=== PATIENT | female | born 1985 | race African-American/Black ===

== ENCOUNTER 2017-03-02 11:25 | Outpatient (CLI) | payer OTHER ==
[2017-03-02 12:18] LABS: #Basophils 0.1 thou/uL (0.0-0.2); #Eosinphils 0.1 thou/uL (0.0-0.7); #Lymphocytes 1.9 thou/uL (1.20-3.40); #Monocytes 0.4 thou/uL (0.11-0.59); #Neutrophils 1.8 thou/uL (1.40-6.50); %Basophils 2.1 % (0.0-1.0); %Eosinophils 2.2 % (0.0-10.0); %Lymphocytes 44.6 % (21.0-51.0); %Monocytes 8.7 % (0.0-10.0); %Neutrophils 42.5 % (42.0-75.0); ALT (SGPT) 22 U/L (0-55); AST (SGOT) 20 U/L (5-34); Albumin 3.8 g/dL (3.5-5.0); Alkaline Phosphatase 55 U/L (40-150); Anion Gap 13 mmol/L (10-20); BUN (Urea Nitrogen) 9 mg/dL (7.0-18.7); Bilirubin, Total 0.4 mg/dL (0.2-1.2); Calc. Creatinine Clearance 0 mL/min (70-130); Calcium 9.2 mg/dL (7.8-10.44); Carbon Dioxide 26 mmol/L (22-29); Chloride 103 mmol/L (98-107); Cholesterol 189 mg/dL (< 200 Desired); Estimated GFR-MDRD Greater than 90; Globulin 3.8 g/dL (2.4-3.5); Glucose 102 mg/dL (70-105); HDL Cholesterol 63 mg/dL (>60 Neg Risk); Hemoglobin 10.9 g/dL (12.0-16.0); LDL Cholesterol, Calculated 111 mg/dL; Mean Corpuscular HGB CONC 32.2 g/dL (32.0-36.0); Mean Platelet Volume 9.9 fL (7.4-10.4); Platelet Count 245 thou/uL (130-400); Potassium 4.1 mmol/L (3.5-5.1); Protein, Total 7.6 g/dL (6.0-8.3); RBC Distribution Width 12.2 % (11.5-14.5); Red Blood Cell (RBC) Count 3.89 mill/uL (4.20-5.40); Sodium 138 mmol/L (136-145); Triglycerides 73 mg/dL (Less than 150); White Blood Cell (WBC) Count 4.2 thou/uL (4.8-10.8)
[2017-03-02 12:34] LABS: Hemoglobin A1c 5.5 % (4.0-6.0)
[2017-03-02 15:12] LABS: Bilirubin Negative (Negative); Blood, Urine Small (Negative); Clarity Hazy (Clear); Glucose, Urine (Dipstick) Negative (Negative); Leukocyte Negative (Negative); Nitrite Negative (Negative); Protein, Urine (Dipstick) Negative (Neg-Trace); Urobilinogen 0.2 mg/dL (0.2-1.0); pH, Urine 5.5 (5.0-9.0)
[2017-03-02 15:18] LABS: Bacteria/HPF 1+ HPF (None Seen); WBC/HPF None Seen HPF (0-3)
[2017-03-02 18:59] LABS: HBCM Index 0.09 S/CO (0-0.79); HBSAg Index 0.22 S/CO (0-0.99); HIV (1/2) Antibody/Antigen Non-Reactive (NonReactive); HIV 1/2 INDEX 0.11 S/CO (<1.00); Hep A IgM AB Non-Reactive (NonReactive); Hep A IgM S/CO 0.17 S/CO (0-0.79); Hep B Surf Ag Non-Reactive S/CO (NonReactive); Hep C IgG Ab Non-Reactive (NonReactive); Hep C Index 0.28 S/CO (0-0.79); Hepatitis B Core IGM Abs Non-Reactive (NonReactive)
[2017-03-02 19:23] LABS: Specific Gravity, Urine 1.032 (1.002-1.036)
[2017-03-02 20:16] LABS: Chlamydia by PCR Not Detected (NotDetected); GC by PCR Not Detected (NotDetected)
== END 2017-03-02 11:26 | disposition home or self-care (01) ==
LOC: NAV LAB 11:25
PROVIDERS: ATTEND Family Medicine
DX: Z00.00 Encounter for general adult medical examination without abnormal findings (principal); Z20.2 Contact with and (suspected) exposure to infections with a predominantly sexual mode of transmission
CPT/HCPCS: 36415; 80053; 80061; 80074; 81001; 83036; 85025; 86592; 86694; 86695; 86696; 87389; 87491; 87591

== ENCOUNTER 2019-08-04 16:03 | Emergency (ER) | payer OTHER ==
[2019-08-04] MEDS ORDERED: Lidocaine 1% (PF) 30 ML VIAL ONE (16:33)
[2019-08-04] MEDS ORDERED: Lidocaine 1% w/Epinephrine 1:100K 30 ML VIAL ONE (16:33)
[2019-08-04] MEDS ORDERED: Aspirin Chewable 81 MG TAB ONE (16:33)
== END 2019-08-04 16:58 | disposition home or self-care (01) ==
LOC: NAV ERS 16:03
DX: S91.202A Unspecified open wound of left great toe with damage to nail, initial encounter (principal); I10 Essential (primary) hypertension; J45.909 Unspecified asthma, uncomplicated; W52.XXXA Crushed, pushed or stepped on by crowd or human stampede, initial encounter
CPT/HCPCS: 11750; J2001

== ENCOUNTER 2020-02-01 14:57 | Emergency (ER) | payer OTHER ==
[2020-02-01 15:25] LABS: Bilirubin Negative (Negative); Blood, Urine Small (Negative); Glucose, Urine (Dipstick) >=1000 mg/dL (Negative); Leukocyte Negative (Negative); Nitrite Negative (Negative); Protein, Urine (Dipstick) Negative (Neg-Trace); Urobilinogen 0.2 mg/dL (Less than 2)
[2020-02-01 15:33] LABS: Clarity SL HAZY (Clear)
[2020-02-01] MEDS ORDERED: Sodium Chloride 0.9% 1,000 ML ONE ×2 (15:48→16:35)
[2020-02-01 16:02] LABS: RBC/HPF 0-3 HPF (0-3); Squamous Epithelial 0-3 HPF (0-3); WBC/HPF 0-3 HPF (0-3)
[2020-02-01 16:20] LABS: ALT (SGPT) 20 U/L (8-55); AST (SGOT) 14 U/L (5-34); Albumin 4.1 g/dL (3.5-5.0); Alkaline Phosphatase 79 U/L (40-110); Anion Gap 17 mmol/L (10-20); BUN (Urea Nitrogen) 9 mg/dL (7.0-18.7); Bilirubin, Total 0.3 mg/dL (0.2-1.2); Calc. Creatinine Clearance 0 mL/min (70-130); Calcium 9.4 mg/dL (7.8-10.44); Carbon Dioxide 25 mmol/L (22-29); Chloride 95 mmol/L (98-107); Estimated GFR-MDRD 67; Globulin 4.2 g/dL (2.4-3.5); Glucose 448 mg/dL (70-105); Lipase 16 U/L (8-78); Potassium 4.1 mmol/L (3.5-5.1); Protein, Total 8.3 g/dL (6.0-8.3); Sodium 133 mmol/L (136-145)
[2020-02-01 16:22] LABS: #Basophils 0.1 thou/uL (0.0-0.2); #Eosinphils 0.1 thou/uL (0.0-0.7); #Lymphocytes 1.6 thou/uL (1.20-3.40); #Monocytes 0.4 thou/uL (0.11-0.59); #Neutrophils 2.8 thou/uL (1.40-6.50); %Basophils 1.2 % (0.0-1.0); %Eosinophils 1.7 % (0.0-10.0); %Lymphocytes 31.8 % (21.0-51.0); %Monocytes 8.4 % (0.0-10.0); %Neutrophils 56.8 % (42.0-75.0); Hemoglobin 12.3 g/dL (12.0-16.0); Mean Corpuscular HGB CONC 31.7 g/dL (32.0-36.0); Mean Corpuscular Volume 85.2 fL (78.0-98.0); Mean Platelet Volume 12.5 fL (7.4-10.4); Platelet Count 273 thou/uL (130-400); RBC Distribution Width 11.7 % (11.5-14.5); Red Blood Cell (RBC) Count 4.55 mill/uL (4.20-5.40)
[2020-02-01] MEDS ORDERED: Insulin Regular 300 UNITS/3 ML VIAL ONE (16:33)
== END 2020-02-01 17:53 | disposition home or self-care (01) ==
LOC: NAV ERS 14:57
DX: E11.9 Type 2 diabetes mellitus without complications (principal); E86.9 Volume depletion, unspecified
CPT/HCPCS: 36416; 80053; 81003; 81015; 82010; 83036; 83690; 84443; 85025; 96360; 96361; J1815; J7050

== ENCOUNTER 2020-04-02 16:01 | Emergency (ER) | payer OTHER ==
[2020-04-02] MEDS ORDERED: Ketorolac Tromethamine 60 MG/2 ML VIAL ONE (16:49)
[2020-04-02 16:53] LABS: Bilirubin Negative (Negative); Blood, Urine Trace (Negative); Glucose, Urine (Dipstick) 100 mg/dL (Negative); Leukocyte Negative (Negative); Nitrite Negative (Negative); Protein, Urine (Dipstick) 30 mg/dL (Neg-Trace); Urobilinogen 0.2 mg/dL (Less than 2)
[2020-04-02 16:54] LABS: Clarity SL HAZY (Clear)
[2020-04-02 17:08] LABS: Bacteria/HPF Rare-Few HPF (None Seen); RBC/HPF 0-3 HPF (0-3); Squamous Epithelial 0-3 HPF (0-3); WBC/HPF 0-3 HPF (0-3)
== END 2020-04-02 17:37 | disposition home or self-care (01) ==
LOC: NAV ERS 16:01
DX: R10.32 Left lower quadrant pain (principal); E11.9 Type 2 diabetes mellitus without complications
CPT/HCPCS: 81003; 81015; 87086; 96372; 99284; J1885

== ENCOUNTER 2020-07-12 15:48 | Emergency (ER) | payer OTHER ==
--- NOTE | 2020-07-12 16:23 | RAD ---
EXAM: FOUR VIEWS OF THE RIGHT KNEE: 07/12/20 HISTORY: Pain and injury. Fall. FINDINGS: Preserved joint spaces. No joint effusion. No fracture or malalignment. IMPRESSION: No fracture. POS: PPP
== END 2020-07-12 15:59 | disposition home or self-care (01) ==
LOC: NAV ERS 15:48
DX: S80.01XA Contusion of right knee, initial encounter (principal); E11.9 Type 2 diabetes mellitus without complications; I10 Essential (primary) hypertension; J45.909 Unspecified asthma, uncomplicated; Z79.84 Long term (current) use of oral hypoglycemic drugs; W01.0XXA Fall on same level from slipping, tripping and stumbling without subsequent striking against object, initial encounter
CPT/HCPCS: 99001

== ENCOUNTER 2020-11-19 18:35 | Emergency (ER) | payer OTHER ==
[2020-11-19] MEDS ORDERED: Sodium Chloride 0.9% 1,000 ML ONE (19:20)
[2020-11-19 19:39] LABS: #Basophils 0.1 thou/uL (0.0-0.2); #Eosinphils 0.1 thou/uL (0.0-0.7); #Lymphocytes 2.4 thou/uL (1.20-3.40); #Monocytes 0.6 thou/uL (0.11-0.59); %Basophils 1.6 % (0.0-1.0); %Eosinophils 1.5 % (0.0-10.0); %Monocytes 8.9 % (0.0-10.0); %Neutrophils 48.9 % (42.0-75.0); Hemoglobin 11.1 g/dL (12.0-16.0); Mean Corpuscular HGB CONC 31.6 g/dL (32.0-36.0); Mean Corpuscular Hemoglobin 27.2 pg (27.0-31.0); Mean Platelet Volume 12.6 fL (7.4-10.4); Platelet Count 203 thou/uL (130-400); White Blood Cell (WBC) Count 6.2 thou/uL (4.8-10.8)
[2020-11-19 19:41] LABS: ALT (SGPT) 16 U/L (8-55); AST (SGOT) 14 U/L (5-34); Albumin 3.8 g/dL (3.5-5.0); Alkaline Phosphatase 60 U/L (40-110); Anion Gap 15 mmol/L (10-20); BUN (Urea Nitrogen) 14 mg/dL (7.0-18.7); Bilirubin, Total 0.2 mg/dL (0.2-1.2); Calc. Creatinine Clearance 0 mL/min (70-130); Calcium 9.1 mg/dL (7.8-10.44); Carbon Dioxide 23 mmol/L (22-29); Chloride 100 mmol/L (98-107); Globulin 3.4 g/dL (2.4-3.5); Glucose 454 mg/dL (70-105); Lipase 35 U/L (8-78); Magnesium 1.5 mg/dL (1.6-2.6); Potassium 4.2 mmol/L (3.5-5.1); Protein, Total 7.2 g/dL (6.0-8.3); Sodium 134 mmol/L (136-145)
[2020-11-19 19:58] LABS: Platelet Morphology Comment Appears Adequate; RBC Morphology Normal
[2020-11-19 20:16] LABS: Pregnancy Test - Urine (BHCG) Negative (Negative); Pregu Control Background? CLEAR/WHITE (CLR/WHITE); Pregu Control Bar Appear? YES (CONTROL BAR); Specific Gravity 1.015 (1.002-1.036)
[2020-11-19 20:16] LABS: Bilirubin Negative (Negative); Blood, Urine Trace (Negative); Clarity Clear (Clear); Glucose, Urine (Dipstick) >=1000 mg/dL (Negative); Ketone, Urine 15 mg/dL (Negative); Leukocyte Negative (Negative); Nitrite Negative (Negative); Protein, Urine (Dipstick) Negative (Neg-Trace); Specific Gravity, Urine 1.015 (1.005-1.030); Urobilinogen 0.2 mg/dL (Less than 2)
[2020-11-19 20:22] LABS: Bacteria/HPF None Seen HPF (None Seen); RBC/HPF 0-3 HPF (0-3); Squamous Epithelial 0-3 HPF (0-3); WBC/HPF 0-3 HPF (0-3)
[2020-11-19] MEDS ORDERED: glyBURIDE 5 MG TAB PO SCH (21:30)
== END 2020-11-19 21:37 | disposition home or self-care (01) ==
LOC: NAV ERS 18:35
DX: E11.65 Type 2 diabetes mellitus with hyperglycemia (principal); D64.9 Anemia, unspecified; I10 Essential (primary) hypertension; J45.909 Unspecified asthma, uncomplicated; Z79.84 Long term (current) use of oral hypoglycemic drugs
CPT/HCPCS: 36416; 80053; 81003; 81015; 81025; 82010; 83605; 83690; 83735; 84484; 85025; 93005; 94760; J7050

== ENCOUNTER 2021-01-02 18:06 | Emergency (ER) | payer OTHER ==
[2021-01-02] MEDS ORDERED: Sodium Chloride 0.9% 1,000 ML ONE (18:45)
[2021-01-02 18:57] LABS: Bilirubin Negative (Negative); Blood, Urine Trace (Negative); Clarity Clear (Clear); Glucose, Urine (Dipstick) >=1000 mg/dL (Negative); Ketone, Urine Trace mg/dL (Negative); Leukocyte Negative (Negative); Nitrite Negative (Negative); Protein, Urine (Dipstick) Negative (Neg-Trace); Urobilinogen 0.2 mg/dL (Less than 2)
[2021-01-02 19:04] LABS: RBC/HPF 0-3 HPF (0-3); Squamous Epithelial 0-3 HPF (0-3); WBC/HPF 0-3 HPF (0-3)
[2021-01-02 19:08] LABS: Anion Gap 14 mmol/L (10-20); BUN (Urea Nitrogen) 13 mg/dL (7.0-18.7); Calc. Creatinine Clearance 0 mL/min (70-130); Calcium 9.6 mg/dL (7.8-10.44); Carbon Dioxide 27 mmol/L (22-29); Chloride 96 mmol/L (98-107); Glucose 378 mg/dL (70-105); Magnesium 1.7 mg/dL (1.6-2.6); Potassium 4.3 mmol/L (3.5-5.1); Sodium 133 mmol/L (136-145)
== END 2021-01-02 20:32 | disposition home or self-care (01) ==
LOC: NAV ERS 18:06
DX: E11.65 Type 2 diabetes mellitus with hyperglycemia (principal); E86.0 Dehydration; I10 Essential (primary) hypertension; J45.909 Unspecified asthma, uncomplicated; Z79.84 Long term (current) use of oral hypoglycemic drugs
CPT/HCPCS: 36416; 80048; 81003; 81015; 82010; 83735; 99284; J7050

== ENCOUNTER 2021-03-18 10:57 | Emergency (ER) | payer OTHER ==
[~2021-03-18 10:57] MED LIST: Bacitracin 1 PK ONE
== END 2021-03-18 12:05 | disposition home or self-care (01) ==
LOC: NAV ERS 10:57
DX: N75.0 Cyst of Bartholin's gland (principal); E11.9 Type 2 diabetes mellitus without complications
CPT/HCPCS: 56420

== ENCOUNTER 2022-12-20 13:19 | Emergency (ER) | payer OTHER ==
[~2022-12-20 13:19] MED LIST changes: -Bacitracin 1 PK ONE; +Iopamidol 370 76% 100 ML VIAL ONE
[2022-12-20 13:54] LABS: #Basophils 0.1 thou/uL (0.0-0.2); #Eosinphils 0.1 thou/uL (0.0-0.7); #Lymphocytes 2.3 thou/uL (1.20-3.40); #Monocytes 0.5 thou/uL (0.11-0.59); #Neutrophils 2.4 thou/uL (1.40-6.50); %Eosinophils 1.8 % (0.0-10.0); %Lymphocytes 42.6 % (21.0-51.0); %Monocytes 8.5 % (0.0-10.0); Mean Corpuscular HGB CONC 31.7 g/dL (32.0-36.0); Mean Corpuscular Hemoglobin 25.8 pg (27.0-31.0); Mean Corpuscular Volume 81.4 fl (78.0-98.0); Mean Platelet Volume 11.5 fL (7.4-10.4); Platelet Count 335 10x3/uL (130-400); RBC Distribution Width 13.1 % (11.5-14.5); Red Blood Cell (RBC) Count 4.25 mill/uL (4.20-5.40); White Blood Cell (WBC) Count 5.3 10x3/uL (4.8-10.8)
[2022-12-20 14:18] LABS: BHCG - Serum Negative (NEGATIVE); Pregs Control Bar Appear? YES (CONTROL BAR)
[2022-12-20 14:30] LABS: ALT (SGPT) 12 U/L (8-55); AST (SGOT) 10 U/L (5-34); Albumin 3.6 g/dL (3.5-5.0); Alkaline Phosphatase 58 U/L (40-110); Anion Gap 15 mmol/L (10-20); BUN (Urea Nitrogen) 6 mg/dL (7.0-18.7); Bilirubin, Total 0.3 mg/dL (0.2-1.2); CK (CPK) 77 U/L (29-168); Calc. Creatinine Clearance 0 mL/min (70-130); Carbon Dioxide 23 mmol/L (22-29); Chloride 100 mmol/L (98-107); Estimated GFR 94; Globulin 3.5 g/dL (2.4-3.5); Glucose 288 mg/dL (70-105); Magnesium 1.6 mg/dL (1.6-2.6); Potassium 3.9 mmol/L (3.5-5.1); Protein, Total 7.1 g/dL (6.0-8.3); Sodium 134 mmol/L (136-145)
[2022-12-20 15:50] LABS: Bilirubin Negative (Negative); Blood, Urine Negative (Negative); Clarity Clear (Clear); Glucose, Urine (Dipstick) >=1000 mg/dL (Negative); Ketone, Urine Trace mg/dL (Negative); Leukocyte Negative (Negative); Nitrite Negative (Negative); Protein, Urine (Dipstick) Negative (Neg-Trace); Specific Gravity, Urine 1.015 (1.005-1.030); Urobilinogen 0.2 mg/dL (Less than 2)
[2022-12-20] MEDS ORDERED: Aspirin 325 MG TAB ONE (16:37)
[2022-12-20] MEDS ORDERED: Aspirin Chewable 81 MG TAB ONE (16:37)
[2022-12-20] MEDS ORDERED: Insulin Regular 300 UNITS/3 ML VIAL ONE (19:37)
[2022-12-20] MEDS ORDERED: Insulin Regular 300 UNITS/3 ML VIAL SC SCH (19:45)
[2022-12-20] MEDS ORDERED: Lantus 1000 UNITS/10 ML VIAL SC SCH (19:45)
[2022-12-21] MEDS ORDERED: Aspirin 325 MG TAB ONE (10:00)
== END 2022-12-21 10:20 | disposition short-term general hospital (02) ==
LOC: NAV ERS 13:19
DX: R53.1 Weakness (principal); R47.81 Slurred speech; E11.9 Type 2 diabetes mellitus without complications; Z79.4 Long term (current) use of insulin
CPT/HCPCS: 36416; 70496; 70498; 80053; 81003; 82550; 83735; 84439; 84443; 84480; 84484; 84703; 85025; 93005; J1815; Q9967

== ENCOUNTER 2023-03-22 13:32 | Emergency (ER) | payer OTHER ==
[2023-03-22] MEDS ORDERED: Boostrix 0.5 ML (Tdap) VIAL (>/=7 yrs of age) ONE (13:52)
== END 2023-03-22 13:58 | disposition home or self-care (01) ==
LOC: NAV ERS 13:32
DX: S91.201A Unspecified open wound of right great toe with damage to nail, initial encounter (principal); E11.9 Type 2 diabetes mellitus without complications; W22.8XXA Striking against or struck by other objects, initial encounter; Z23 Encounter for immunization; Z79.4 Long term (current) use of insulin; Z79.84 Long term (current) use of oral hypoglycemic drugs
CPT/HCPCS: 90471; 90715

== ENCOUNTER 2023-06-16 21:55 | Emergency (ER) | payer OTHER | END 2023-06-16 22:51 | disposition home or self-care (01) | LOC: NAV ERS 21:55 | DX: S83.91XA Sprain of unspecified site of right knee, initial encounter (principal); E11.9 Type 2 diabetes mellitus without complications; G35 Multiple sclerosis; W01.198A Fall on same level from slipping, tripping and stumbling with subsequent striking against other object, initial encounter; Y92.121 Bathroom in nursing home as the place of occurrence of the external cause; Z79.4 Long term (current) use of insulin; Z79.84 Long term (current) use of oral hypoglycemic drugs ==